=== PATIENT | female | born 1975 ===

== ENCOUNTER 2021-03-27 10:04 | Outpatient (CLI) | payer OTHER | END 2021-03-27 12:14 | disposition home or self-care (01) | LOC: SONOGRAMA 10:04 | PROVIDERS: ATTEND Pathology Anatomic Pathology & Clinical Pathology | DX: E04.2 Nontoxic multinodular goiter (principal) ==

== ENCOUNTER 2021-05-04 08:04 | Outpatient (CLI) | payer OTHER | END 2021-05-04 08:08 | disposition home or self-care (01) | LOC: SONOGRAMA 08:04 | PROVIDERS: ATTEND Pathology Anatomic Pathology & Clinical Pathology | DX: E04.2 Nontoxic multinodular goiter (principal) ==

== ENCOUNTER 2022-10-08 08:01 | Outpatient (CLI) | payer OTHER | END 2022-10-08 08:05 | disposition home or self-care (01) | LOC: SONOGRAMA 08:01 | PROVIDERS: ATTEND Pathology Anatomic Pathology & Clinical Pathology | DX: D34 Benign neoplasm of thyroid gland (principal); E06.3 Autoimmune thyroiditis ==